=== PATIENT | male | born 1955 | race African-American/Black ===

== ENCOUNTER 2018-01-18 06:39 | Observation (INO) | payer BC ==
[2018-01-18] MEDS ORDERED: NACL 0.9% 3 ML SYG IV (10:00)
[2018-01-18] MEDS ORDERED: ZOLPIDEM 5 MG TAB PO (10:00)
[2018-01-18] MEDS ORDERED: ACETAMINOPHEN 325 MG TAB PO (10:00)
[2018-01-18] MEDS: FAMOTIDINE 20 MG TAB PO ×2 (11:51→22:00)
[2018-01-18] MEDS: DOCUSATE SODIUM 100 MG CAP PO ×2 (11:51→22:00)
[2018-01-18] MEDS: ASPIRIN 81 MG TAB PO (11:52)
[2018-01-18] MEDS: SOD CHLORIDE 0.9% 1,000 ML IV ×2 (11:52→22:01)
[2018-01-18] MEDS ORDERED: GLUCAGON 1 MG INJ IM (12:00)
[2018-01-18] MEDS ORDERED: DEXTROSE 50% 50 ML SYRINGE IV ×2 (12:00)
[2018-01-18] MEDS ORDERED: GLUCOSE GEL 15 GRAM TUBE PO ×2 (12:00)
[2018-01-18] MEDS ORDERED: SOD CHLORIDE 0.9% 1,000 ML IV (12:00)
[2018-01-18] MEDS ORDERED: GLUCOSE GEL 15 GRAM TUBE BUCCAL (12:00)
[2018-01-18 12:09] LABS: CREATINE KINASE 307 IU/L (23-200)
[2018-01-18 12:23] LABS: CK INDEX 0.8; CK-MB 2.51 ng/ml (0.0-2.4); TROPONIN-I < 0.010 ng/ml (0.000-0.120)
[2018-01-18] MEDS ORDERED: hydrALAzine 20 MG INJ IV (12:30)
[2018-01-18] MEDS: LOSARTAN 25 MG TAB PO (12:42)
[2018-01-18] MEDS: INSULIN ASPART [NOVOLOG] 3 ML PEN SC ×3 (12:51→22:08)
[2018-01-18 12:56] LABS: ANION GAP 14 (8-16); BLOOD UREA NITROGEN 19 mg/dl (7-20); CALCIUM 9.2 mg/dl (8.4-10.2); CARBON DIOXIDE 26 mmol/L (21-31); CHLORIDE 97 mmol/L (97-110); CREATININE 0.88 mg/dl (0.61-1.24); GLUCOSE 225 mg/dl (70-220); MAGNESIUM 1.7 mg/dl (1.7-2.5); POTASSIUM 3.8 mmol/L (3.5-5.1); SODIUM 133 mmol/L (135-144)
[2018-01-18 14:34] LABS: HEMOGLOBIN A1C 11.5 % (0-5.9)
[2018-01-18] MEDS: ACCU-CHEK XX ×2 (14:41→20:00)
[2018-01-18 14:58] LABS: CREATINE KINASE 277 IU/L (23-200)
[2018-01-18 15:08] LABS: CK INDEX 0.8; CK-MB 2.34 ng/ml (0.0-2.4)
[2018-01-18 15:14] LABS: ADD UMIC NO; UR ASCORBIC ACID NEGATIVE (NEGATIVE); UR BILIRUBIN (Dip) NEGATIVE (NEGATIVE); UR BLOOD (Dip) NEGATIVE (NEGATIVE); UR CLARITY CLEAR (CLEAR); UR COLOR YELLOW (YELLOW); UR GLUCOSE (Dip) 3+ mg/dL (NEGATIVE); UR KETONES (Dip) 1+ mg/dL (NEGATIVE); UR LEUKOCYTE ESTERASE (Dip) NEGATIVE Leu/ul (NEGATIVE); UR NITRITE (Dip) NEGATIVE (NEGATIVE); UR SPECIFIC GRAVITY (Dip) 1.028 (1.003-1.030); UR TOTAL PROTEIN (Dip) NEGATIVE (NEGATIVE); UR UROBILINOGEN (Dip) 1+ mg/dL (NEGATIVE)
[2018-01-18 15:29] LABS: TROPONIN-I < 0.010 ng/ml (0.000-0.120)
[2018-01-18 15:47] LABS: AMPHETAMINE/METHAMPHETAMINE Negative (NEGATIVE); BARBITURATES Negative (NEGATIVE); BENZODIAZEPINES Negative (NEGATIVE); CANNABINOIDS Positive (NEGATIVE); COCAINE Negative (NEGATIVE); OPIATES Negative (NEGATIVE)
[2018-01-18] MEDS: ONDANSETRON 4 MG INJ IV (21:52)
[2018-01-19] MEDS: ACCU-CHEK XX ×3 (02:00→13:54)
[2018-01-19] MEDS: SOD CHLORIDE 0.9% 1,000 ML IV ×2 (04:00→10:14)
[2018-01-19 05:27] LABS: ADD MAN DIFF? NO
[2018-01-19 05:30] LABS: WHITE BLOOD COUNT 7.1 10^3/ul (4.8-10.8)
[2018-01-19 05:30] LABS: BASOPHILS % 0.3 % (0.0-2.0); EOSINOPHILS # 0.2 10^3/ul (0.0-0.5); EOSINOPHILS % 3.2 % (0.0-7.0); HEMATOCRIT 40.5 % (42.0-52.0); HEMOGLOBIN 14.7 g/dl (14.0-18.0); LYMPHOCYTES # 1.6 10^3/ul (0.8-2.9); LYMPHOCYTES % 22.3 % (15.0-51.0); MEAN CORPUSCULAR HEMOGLOBIN 33.5 pg (29.0-33.0); MEAN CORPUSCULAR HGB CONC 36.3 g/dl (32.0-37.0); MEAN CORPUSCULAR VOLUME 92.3 fl (82.0-101.0); MEAN PLATELET VOLUME 9.9 fl (7.4-10.4); MONOCYTE # 0.7 10^3/ul (0.3-0.9); MONOCYTES % 9.7 % (0.0-11.0); NEUTROPHIL # 4.6 10^3/ul (1.6-7.5); NEUTROPHILS % 64.2 % (39.0-77.0); PLATELET COUNT 267 10^3/UL (140-415); RED BLOOD COUNT 4.39 10^6/ul (4.70-6.10); RED CELL DISTRIBUTION WIDTH 11.3 % (11.5-14.5)
[2018-01-19 06:55] LABS: ALANINE AMINOTRANSFERASE 23 IU/L (13-69); ALBUMIN/GLOBULIN RATIO 1.21; ALKALINE PHOSPHATASE 54 IU/L (42-121); ANION GAP 12 (8-16); ASPARTATE AMINO TRANSFERASE 29 IU/L (15-46); BILIRUBIN,INDIRECT 0.6 mg/dl (0-1.1); BILIRUBIN,TOTAL 0.6 mg/dl (0.2-1.3); BLOOD UREA NITROGEN 19 mg/dl (7-20); CALCIUM 8.8 mg/dl (8.4-10.2); CARBON DIOXIDE 29 mmol/L (21-31); CHLORIDE 98 mmol/L (97-110); CHOL/HDL RATIO 5.5 RATIO; CHOLESTEROL 249 mg/dl (100-200); CREATININE 0.96 mg/dl (0.61-1.24); GLUCOSE 206 mg/dl (70-220); HDL CHOLESTEROL 45 mg/dl (30-78); LDL CHOLESTEROL,CALCULATED 174 mg/dl; MAGNESIUM 1.6 mg/dl (1.7-2.5); POTASSIUM 3.7 mmol/L (3.5-5.1); SODIUM 135 mmol/L (135-144); TOTAL PROTEIN 7.3 g/dl (6.1-8.1); TRIGLYCERIDES 152 mg/dl (0-149)
[2018-01-19] MEDS: INSULIN ASPART [NOVOLOG] 3 ML PEN SC ×3 (07:57→17:32)
[2018-01-19] MEDS: DOCUSATE SODIUM 100 MG CAP PO (08:05)
[2018-01-19] MEDS: ASPIRIN 81 MG TAB PO (08:11)
[2018-01-19] MEDS: FAMOTIDINE 20 MG TAB PO (08:11)
[2018-01-19] MEDS: LOSARTAN 25 MG TAB PO (08:11)
[2018-01-19] MEDS: GABAPENTIN 100 MG CAP PO (13:54)
[2018-01-19] MEDS: LINAGLIPTIN 5 MG TABLET PO (13:54)
[2018-01-19] MEDS: MAGNESIUM SULFATE 1 GM/D5W 100 ML IVPB (14:21)
[2018-01-19] MEDS: INSULIN GLARGINE [LANTus] (100 UNITS/ML) SYG SC (14:29)
== END 2018-01-19 18:33 | disposition home or self-care (01) ==
LOC: 6WM 06:39
PROVIDERS: Family Medicine
DX: N17.9 Acute kidney failure, unspecified (principal); R55 Syncope and collapse; E86.0 Dehydration; E11.65 Type 2 diabetes mellitus with hyperglycemia; I10 Essential (primary) hypertension; F43.21 Adjustment disorder with depressed mood; E78.5 Hyperlipidemia, unspecified; Z91.14 Patient's other noncompliance with medication regimen; Z79.84 Long term (current) use of oral hypoglycemic drugs
CPT/HCPCS: 80048; 80053; 80061; 80307; 81003; 82550; 82553; 82962; 83036; 83735; 84443; 84484; 85025; 93306; 93880; 99217; G0378

== ENCOUNTER 2018-03-07 20:48 | Emergency (ER) | payer SELFPAY, BC | END 2018-03-07 21:00 | disposition left against medical advice (07) | LOC: E/R 21:00 | DX: Z53.21 Procedure and treatment not carried out due to patient leaving prior to being seen by health care provider (principal) ==

== ENCOUNTER 2018-03-08 11:14 | Emergency (ER) | payer BC ==
[2018-03-08 12:01] LABS: ADD MAN DIFF? NO
[2018-03-08] MEDS: ONDANSETRON 4 MG INJ IV ×2 (12:08→12:54)
[2018-03-08] MEDS: SOD CHLORIDE 0.9% 1,000 ML IV (12:08)
[2018-03-08 12:13] LABS: ADD UMIC YES; UR ASCORBIC ACID NEGATIVE (NEGATIVE); UR BILIRUBIN (Dip) NEGATIVE (NEGATIVE); UR BLOOD (Dip) NEGATIVE (NEGATIVE); UR CLARITY CLEAR (CLEAR); UR COLOR YELLOW (YELLOW); UR GLUCOSE (Dip) 2+ mg/dL (NEGATIVE); UR KETONES (Dip) 1+ mg/dL (NEGATIVE); UR LEUKOCYTE ESTERASE (Dip) NEGATIVE Leu/ul (NEGATIVE); UR MUCUS FEW /HPF (NONE SEEN); UR NITRITE (Dip) NEGATIVE (NEGATIVE); UR RBC 0 /HPF (0-5); UR SPECIFIC GRAVITY (Dip) 1.023 (1.003-1.030); UR TOTAL PROTEIN (Dip) 1+ mg/dl (NEGATIVE); UR UROBILINOGEN (Dip) 2+ mg/dL (NEGATIVE); UR WBC 1 /HPF (0-5)
[2018-03-08 12:16] LABS: WHITE BLOOD COUNT 11.1 10^3/ul (4.8-10.8)
[2018-03-08 12:16] LABS: BASOPHILS % 0.2 % (0.0-2.0); EOSINOPHILS % 0.4 % (0.0-7.0); HEMATOCRIT 36.7 % (42.0-52.0); HEMOGLOBIN 12.8 g/dl (14.0-18.0); LYMPHOCYTES # 1.6 10^3/ul (0.8-2.9); MEAN CORPUSCULAR HEMOGLOBIN 33.3 pg (29.0-33.0); MEAN CORPUSCULAR HGB CONC 34.9 g/dl (32.0-37.0); MEAN CORPUSCULAR VOLUME 95.6 fl (82.0-101.0); MEAN PLATELET VOLUME 10.2 fl (7.4-10.4); NEUTROPHIL # 8.4 10^3/ul (1.6-7.5); NEUTROPHILS % 75.9 % (39.0-77.0); PLATELET COUNT 324 10^3/UL (140-415); RED BLOOD COUNT 3.84 10^6/ul (4.70-6.10); RED CELL DISTRIBUTION WIDTH 11.9 % (11.5-14.5)
[2018-03-08 12:29] LABS: ALANINE AMINOTRANSFERASE 27 IU/L (13-69); ALKALINE PHOSPHATASE 71 IU/L (42-121); ANION GAP 16 (8-16); ASPARTATE AMINO TRANSFERASE 32 IU/L (15-46); BILIRUBIN,INDIRECT 2.8 mg/dl (0-1.1); BILIRUBIN,TOTAL 2.8 mg/dl (0.2-1.3); BLOOD UREA NITROGEN 22 mg/dl (7-20); CALCIUM 9.8 mg/dl (8.4-10.2); CARBON DIOXIDE 31 mmol/L (21-31); CHLORIDE 95 mmol/L (97-110); CREATININE 1.01 mg/dl (0.61-1.24); GLUCOSE 219 mg/dl (70-220); LIPASE 81 U/L (23-300); POTASSIUM 3.5 mmol/L (3.5-5.1); SODIUM 138 mmol/L (135-144)
== END 2018-03-08 13:46 | disposition home or self-care (01) ==
LOC: E/R 11:14
DX: R10.9 Unspecified abdominal pain (principal); R11.2 Nausea with vomiting, unspecified; E11.9 Type 2 diabetes mellitus without complications; I10 Essential (primary) hypertension; J45.909 Unspecified asthma, uncomplicated; Z79.82 Long term (current) use of aspirin
CPT/HCPCS: 36415; 80053; 81001; 83690; 85025; 96361; 96374; 96376; 99284-25

== ENCOUNTER 2018-03-09 01:12 | Emergency (ER) | payer BC ==
[2018-03-09 01:55] LABS: ADD MAN DIFF? NO
[2018-03-09 02:02] LABS: BASOPHILS % 0.2 % (0.0-2.0); HEMATOCRIT 33.6 % (42.0-52.0); HEMOGLOBIN 11.7 g/dl (14.0-18.0); LYMPHOCYTES # 0.9 10^3/ul (0.8-2.9); LYMPHOCYTES % 7.5 % (15.0-51.0); MEAN CORPUSCULAR HEMOGLOBIN 33.3 pg (29.0-33.0); MEAN CORPUSCULAR HGB CONC 34.8 g/dl (32.0-37.0); MEAN CORPUSCULAR VOLUME 95.7 fl (82.0-101.0); MEAN PLATELET VOLUME 10.3 fl (7.4-10.4); MONOCYTE # 0.5 10^3/ul (0.3-0.9); MONOCYTES % 3.9 % (0.0-11.0); NEUTROPHIL # 10.1 10^3/ul (1.6-7.5); PLATELET COUNT 322 10^3/UL (140-415); RED BLOOD COUNT 3.51 10^6/ul (4.70-6.10)
[2018-03-09 02:02] LABS: WHITE BLOOD COUNT 11.5 10^3/ul (4.8-10.8)
[2018-03-09 02:24] LABS: ALANINE AMINOTRANSFERASE 29 IU/L (13-69); ALBUMIN 3.9 g/dl (3.3-4.9); ALKALINE PHOSPHATASE 71 IU/L (42-121); ANION GAP 17 (8-16); ASPARTATE AMINO TRANSFERASE 34 IU/L (15-46); BILIRUBIN,INDIRECT 2.3 mg/dl (0-1.1); BILIRUBIN,TOTAL 2.3 mg/dl (0.2-1.3); BLOOD UREA NITROGEN 23 mg/dl (7-20); CALCIUM 9.5 mg/dl (8.4-10.2); CARBON DIOXIDE 29 mmol/L (21-31); CHLORIDE 93 mmol/L (97-110); CREATININE 0.96 mg/dl (0.61-1.24); GLUCOSE 242 mg/dl (70-220); POTASSIUM 3.7 mmol/L (3.5-5.1); SODIUM 135 mmol/L (135-144); TOTAL PROTEIN 7.8 g/dl (6.1-8.1)
[2018-03-09 02:34] LABS: B-TYPE NATRIURETIC PEPTIDE 61 PG/ML (0-125); TROPONIN-I < 0.012 ng/ml (0.000-0.120)
[2018-03-09] MEDS ORDERED: hydrALAzine 20 MG INJ (03:28)
[2018-03-09] MEDS: hydrALAzine 20 MG INJ IV (03:34)
== END 2018-03-09 04:32 | disposition left against medical advice (07) ==
LOC: E/R 04:32
DX: R07.89 Other chest pain (principal); I10 Essential (primary) hypertension; E11.9 Type 2 diabetes mellitus without complications; J45.909 Unspecified asthma, uncomplicated; F17.210 Nicotine dependence, cigarettes, uncomplicated; Z79.4 Long term (current) use of insulin; Z79.82 Long term (current) use of aspirin
CPT/HCPCS: 36415; 71045; 80053; 83880; 84484; 85025; 93005; 96374; 99285-25

== ENCOUNTER 2018-03-16 03:58 | Inpatient (IN) | payer BC ==
[2018-03-16] MEDS: ONDANSETRON 4 MG INJ IV ×2 (04:59→07:09)
[2018-03-16 05:01] LABS: ADD MAN DIFF? NO
[2018-03-16 05:09] LABS: WHITE BLOOD COUNT 9.4 10^3/ul (4.8-10.8)
[2018-03-16 05:09] LABS: BASOPHILS % 0.2 % (0.0-2.0); EOSINOPHILS % 0.2 % (0.0-7.0); HEMATOCRIT 36.6 % (42.0-52.0); LYMPHOCYTES % 10.5 % (15.0-51.0); MEAN CORPUSCULAR HEMOGLOBIN 33.3 pg (29.0-33.0); MEAN CORPUSCULAR HGB CONC 35.5 g/dl (32.0-37.0); MEAN CORPUSCULAR VOLUME 93.8 fl (82.0-101.0); MEAN PLATELET VOLUME 9.5 fl (7.4-10.4); MONOCYTE # 0.8 10^3/ul (0.3-0.9); MONOCYTES % 8.3 % (0.0-11.0); NEUTROPHIL # 7.6 10^3/ul (1.6-7.5); NEUTROPHILS % 80.4 % (39.0-77.0); PLATELET COUNT 376 10^3/UL (140-415); RED CELL DISTRIBUTION WIDTH 12.2 % (11.5-14.5)
[2018-03-16 05:30] LABS: PROTIME 13.3 Sec (11.9-14.9)
[2018-03-16 05:31] LABS: ALANINE AMINOTRANSFERASE 28 IU/L (13-69); ALBUMIN 4.1 g/dl (3.3-4.9); ALBUMIN/GLOBULIN RATIO 1.02; ALKALINE PHOSPHATASE 64 IU/L (42-121); ANION GAP 21 (8-16); ASPARTATE AMINO TRANSFERASE 30 IU/L (15-46); BILIRUBIN,INDIRECT 0.5 mg/dl (0-1.1); BILIRUBIN,TOTAL 0.5 mg/dl (0.2-1.3); BLOOD UREA NITROGEN 30 mg/dl (7-20); CALCIUM 9.7 mg/dl (8.4-10.2); CARBON DIOXIDE 29 mmol/L (21-31); CHLORIDE 89 mmol/L (97-110); CREATININE 1.28 mg/dl (0.61-1.24); GLUCOSE 176 mg/dl (70-220); PARTIAL THROMBOPLASTIN TIME 22.1 Sec (23.0-35.0); POTASSIUM 3.4 mmol/L (3.5-5.1); SODIUM 136 mmol/L (135-144); TOTAL PROTEIN 8.1 g/dl (6.1-8.1)
[2018-03-16 05:43] LABS: B-TYPE NATRIURETIC PEPTIDE 36 PG/ML (0-125); TROPONIN-I < 0.012 ng/ml (0.000-0.120)
[2018-03-16] MEDS: SOD CHLORIDE 0.9% 1,000 ML IV ×2 (07:09→17:46)
[2018-03-16] MEDS: LIDOCAINE/MYLANTA 40 ML BTL PO (07:09)
[2018-03-16] MEDS: BELLADONNA/PHENOBARBITAL TAB PO (07:16)
[2018-03-16] MEDS: POTASSIUM CHLORIDE (SR) 20 MEQ TAB PO (07:16)
[2018-03-16] MEDS ORDERED: LORAZEPAM 2 MG INJ IV (17:00)
[2018-03-16] MEDS ORDERED: DEXTROSE 50% 50 ML SYRINGE IV ×2 (17:00)
[2018-03-16] MEDS ORDERED: ACETAMINOPHEN 325 MG TAB PO (17:00)
[2018-03-16] MEDS ORDERED: GLUCAGON 1 MG INJ IM (17:00)
[2018-03-16] MEDS ORDERED: GLUCOSE GEL 15 GRAM TUBE BUCCAL (17:00)
[2018-03-16] MEDS ORDERED: ONDANSETRON 4 MG INJ IV ×2 (17:00)
[2018-03-16] MEDS ORDERED: DOCUSATE SODIUM 100 MG CAP PO (17:00)
[2018-03-16] MEDS ORDERED: morphine 2 MG INJ IV (17:00)
[2018-03-16] MEDS ORDERED: HYDROCODONE/APAP (5/325) TAB PO (17:00)
[2018-03-16] MEDS ORDERED: NA PHOSPHATE/BIPHOS 133 ML ENEMA PR (17:00)
[2018-03-16] MEDS ORDERED: ZOLPIDEM 5 MG TAB PO (17:00)
[2018-03-16] MEDS ORDERED: NACL 0.9% 3 ML SYG IV (17:00)
[2018-03-16] MEDS: NICOTINE (14 MG/24 HR) PATCH TRANSDERM (17:00)
[2018-03-16] MEDS ORDERED: GLUCOSE GEL 15 GRAM TUBE PO ×2 (17:00)
[2018-03-16] MEDS: INSULIN LISPRO 100 UNIT/ML VIAL SC (17:35)
[2018-03-16] MEDS: INSULIN ASPART [NOVOLOG] 3 ML PEN SC ×2 (17:45→20:21)
[2018-03-16] MEDS: GABAPENTIN 100 MG CAP PO (20:20)
[2018-03-16] MEDS: FAMOTIDINE 20 MG INJ IV (20:20)
[2018-03-16] MEDS: METOCLOPRAMIDE 10 MG INJ IV (21:54)
[2018-03-17] MEDS: ACCU-CHEK XX (02:00)
[2018-03-17] MEDS: SOD CHLORIDE 0.9% 1,000 ML IV ×3 (03:09→17:21)
[2018-03-17] MEDS: METOCLOPRAMIDE 10 MG INJ IV ×2 (05:15→12:20)
[2018-03-17 05:50] LABS: ADD MAN DIFF? NO
[2018-03-17 05:54] LABS: BASOPHILS % 0.3 % (0.0-2.0); EOSINOPHILS # 0.2 10^3/ul (0.0-0.5); EOSINOPHILS % 2.3 % (0.0-7.0); HEMATOCRIT 33.4 % (42.0-52.0); LYMPHOCYTES # 1.5 10^3/ul (0.8-2.9); LYMPHOCYTES % 21.8 % (15.0-51.0); MEAN CORPUSCULAR HEMOGLOBIN 34.2 pg (29.0-33.0); MEAN CORPUSCULAR HGB CONC 35.9 g/dl (32.0-37.0); MEAN CORPUSCULAR VOLUME 95.2 fl (82.0-101.0); MEAN PLATELET VOLUME 9.6 fl (7.4-10.4); MONOCYTE # 0.7 10^3/ul (0.3-0.9); MONOCYTES % 10.1 % (0.0-11.0); NEUTROPHIL # 4.5 10^3/ul (1.6-7.5); NEUTROPHILS % 65.2 % (39.0-77.0); PLATELET COUNT 310 10^3/UL (140-415); RED BLOOD COUNT 3.51 10^6/ul (4.70-6.10); RED CELL DISTRIBUTION WIDTH 11.9 % (11.5-14.5)
[2018-03-17 06:11] LABS: HEMOGLOBIN A1C 6.2 % (0-5.9)
[2018-03-17 06:16] LABS: ALANINE AMINOTRANSFERASE 27 IU/L (13-69); ALBUMIN 3.2 g/dl (3.3-4.9); ALBUMIN/GLOBULIN RATIO 0.96; ALKALINE PHOSPHATASE 49 IU/L (42-121); ANION GAP 11 (8-16); ASPARTATE AMINO TRANSFERASE 20 IU/L (15-46); BILIRUBIN,INDIRECT 0.4 mg/dl (0-1.1); BILIRUBIN,TOTAL 0.4 mg/dl (0.2-1.3); BLOOD UREA NITROGEN 19 mg/dl (7-20); CALCIUM 8.7 mg/dl (8.4-10.2); CARBON DIOXIDE 32 mmol/L (21-31); CHLORIDE 98 mmol/L (97-110); CREATININE 0.98 mg/dl (0.61-1.24); GLUCOSE 121 mg/dl (70-220); POTASSIUM 3.2 mmol/L (3.5-5.1); SODIUM 138 mmol/L (135-144); TOTAL PROTEIN 6.5 g/dl (6.1-8.1)
[2018-03-17 06:19] LABS: LIPASE 513 U/L (23-300)
[2018-03-17 06:28] LABS: TROPONIN-I < 0.012 ng/ml (0.000-0.120)
[2018-03-17] MEDS: POTASSIUM CHLORIDE (SR) 20 MEQ TAB PO (06:54)
[2018-03-17] MEDS: INSULIN ASPART [NOVOLOG] 3 ML PEN SC ×7 (08:00→21:00)
[2018-03-17] MEDS: GABAPENTIN 100 MG CAP PO ×3 (08:07→21:14)
[2018-03-17] MEDS: FAMOTIDINE 20 MG INJ IV ×2 (08:08→21:14)
[2018-03-17] MEDS: NICOTINE (14 MG/24 HR) PATCH TRANSDERM (09:00)
[2018-03-17] MEDS: LINAGLIPTIN 5 MG TABLET PO (10:48)
[2018-03-17] MEDS: ENOXAPARIN 40 MG/0.4 ML SYG SC (10:49)
[2018-03-17] MEDS: INSULIN GLARGINE [LANTus] (100 UNITS/ML) SYG SC (10:49)
[2018-03-17] MEDS: BISACODYL (EC) 5 MG TAB PO (15:00)
[2018-03-17] MEDS ORDERED: NA PHOSPHATE/BIPHOS 133 ML ENEMA PR (19:00)
[2018-03-17] MEDS: METOCLOPRAMIDE 5 MG TAB PO (21:00)
[2018-03-17] MEDS: POLYETHYLENE GLYCOL 17 GM PACKET PO (21:14)
[2018-03-17] MEDS ORDERED: NON-FORMULARY/PATIENT OWN MED (Valsartan* (Diovan*) 80 MG) PO (22:30)
[2018-03-17] MEDS: LOSARTAN 50 MG TAB PO (22:57)
[2018-03-17] MEDS: hydrALAzine 20 MG INJ IV (22:58)
[2018-03-18] MEDS: ACCU-CHEK XX (01:44)
[2018-03-18] MEDS: SOD CHLORIDE 0.9% 1,000 ML IV (05:23)
[2018-03-18 05:33] LABS: ADD MAN DIFF? NO
[2018-03-18 05:35] LABS: BASOPHILS % 0.6 % (0.0-2.0); EOSINOPHILS # 0.2 10^3/ul (0.0-0.5); EOSINOPHILS % 2.2 % (0.0-7.0); HEMATOCRIT 32.5 % (42.0-52.0); HEMOGLOBIN 11.6 g/dl (14.0-18.0); LYMPHOCYTES # 1.3 10^3/ul (0.8-2.9); LYMPHOCYTES % 19.1 % (15.0-51.0); MEAN CORPUSCULAR HEMOGLOBIN 33.7 pg (29.0-33.0); MEAN CORPUSCULAR HGB CONC 35.7 g/dl (32.0-37.0); MEAN CORPUSCULAR VOLUME 94.5 fl (82.0-101.0); MEAN PLATELET VOLUME 9.6 fl (7.4-10.4); MONOCYTE # 0.8 10^3/ul (0.3-0.9); MONOCYTES % 11.8 % (0.0-11.0); NEUTROPHIL # 4.4 10^3/ul (1.6-7.5); NEUTROPHILS % 66.2 % (39.0-77.0); PLATELET COUNT 306 10^3/UL (140-415); RED BLOOD COUNT 3.44 10^6/ul (4.70-6.10)
[2018-03-18 05:35] LABS: WHITE BLOOD COUNT 6.7 10^3/ul (4.8-10.8)
[2018-03-18 06:01] LABS: ALANINE AMINOTRANSFERASE 18 IU/L (13-69); ALBUMIN 3.5 g/dl (3.3-4.9); ALBUMIN/GLOBULIN RATIO 1.16; ALKALINE PHOSPHATASE 51 IU/L (42-121); ANION GAP 12 (8-16); ASPARTATE AMINO TRANSFERASE 22 IU/L (15-46); BILIRUBIN,INDIRECT 0.3 mg/dl (0-1.1); BILIRUBIN,TOTAL 0.3 mg/dl (0.2-1.3); BLOOD UREA NITROGEN 12 mg/dl (7-20); CALCIUM 8.7 mg/dl (8.4-10.2); CARBON DIOXIDE 30 mmol/L (21-31); CHLORIDE 100 mmol/L (97-110); CREATININE 0.85 mg/dl (0.61-1.24); GLUCOSE 110 mg/dl (70-220); POTASSIUM 3.2 mmol/L (3.5-5.1); SODIUM 139 mmol/L (135-144); TOTAL PROTEIN 6.5 g/dl (6.1-8.1)
[2018-03-18 06:15] LABS: LIPASE 442 U/L (23-300)
[2018-03-18 06:23] LABS: PREALBUMIN 16.1 mg/dl (17.6-36.0)
[2018-03-18] MEDS: INSULIN ASPART [NOVOLOG] 3 ML PEN SC ×6 (07:58→17:26)
[2018-03-18] MEDS: ENOXAPARIN 40 MG/0.4 ML SYG SC (08:00)
[2018-03-18] MEDS: INSULIN GLARGINE [LANTus] (100 UNITS/ML) SYG SC (08:01)
[2018-03-18] MEDS: FAMOTIDINE 20 MG INJ IV (08:02)
[2018-03-18] MEDS: POLYETHYLENE GLYCOL 17 GM PACKET PO (08:03)
[2018-03-18] MEDS: METOCLOPRAMIDE 5 MG TAB PO ×3 (08:03→12:14)
[2018-03-18] MEDS: NICOTINE (14 MG/24 HR) PATCH TRANSDERM ×2 (08:03→09:00)
[2018-03-18] MEDS: LOSARTAN 50 MG TAB PO (08:03)
[2018-03-18] MEDS: GABAPENTIN 100 MG CAP PO ×2 (08:03→12:14)
[2018-03-18] MEDS: LINAGLIPTIN 5 MG TABLET PO (08:03)
[2018-03-18] MEDS ORDERED: NON-FORMULARY/PATIENT OWN MED (Valsartan* (Diovan*) 80 MG) PO (09:00)
[2018-03-18] MEDS: POTASSIUM CHLORIDE 20 MEQ POWDER FOR ORAL SOLN PO (13:11)
[2018-03-18] MEDS: BISACODYL 10 MG SUPP PR (14:54)
[2018-03-18] MEDS ORDERED: FAMOTIDINE 20 MG TAB PO (21:00)
[2018-03-19] MEDS ORDERED: POTASSIUM CHLORIDE 20 MEQ POWDER FOR ORAL SOLN PO (09:00)
== END 2018-03-18 18:05 | disposition home or self-care (01) | DRG 392 ==
LOC: E/R 03:58 → PP2 11:40
DX: K21.9 Gastro-esophageal reflux disease without esophagitis (principal); N17.9 Acute kidney failure, unspecified; R11.2 Nausea with vomiting, unspecified; I10 Essential (primary) hypertension; E78.5 Hyperlipidemia, unspecified; F17.200 Nicotine dependence, unspecified, uncomplicated; R63.4 Abnormal weight loss; Z68.23 Body mass index [BMI] 23.0-23.9, adult; F32.9 Major depressive disorder, single episode, unspecified; E88.81 Metabolic syndrome and other insulin resistance; J45.909 Unspecified asthma, uncomplicated; E11.9 Type 2 diabetes mellitus without complications; D64.9 Anemia, unspecified
CPT/HCPCS: 36415; 71045; 74176; 80053; 82962; 83036; 83605; 83690; 83735; 83880; 84100; 84134; 84443; 84484; 85025; 85610; 85730; 87081; 93005; 96361; 96374; 96376; 99285-25

== ENCOUNTER 2018-05-11 11:33 | Emergency (ER) | payer BC ==
[2018-05-11 12:48] LABS: ADD MAN DIFF? NO
[2018-05-11] MEDS: BELLADONNA/PHENOBARBITAL TAB PO (12:49)
[2018-05-11] MEDS: FAMOTIDINE 20 MG TAB PO (12:49)
[2018-05-11] MEDS: ONDANSETRON 4 MG INJ IV (12:49)
[2018-05-11 12:50] LABS: WHITE BLOOD COUNT 11.6 10^3/ul (4.8-10.8)
[2018-05-11 12:50] LABS: BASOPHILS % 0.1 % (0.0-2.0); HEMATOCRIT 44.8 % (42.0-52.0); HEMOGLOBIN 15.7 g/dl (14.0-18.0); LYMPHOCYTES # 0.7 10^3/ul (0.8-2.9); LYMPHOCYTES % 6.3 % (15.0-51.0); MEAN CORPUSCULAR HEMOGLOBIN 33.1 pg (29.0-33.0); MEAN CORPUSCULAR VOLUME 94.5 fl (82.0-101.0); MEAN PLATELET VOLUME 9.9 fl (7.4-10.4); MONOCYTE # 0.4 10^3/ul (0.3-0.9); MONOCYTES % 3.6 % (0.0-11.0); NEUTROPHIL # 10.4 10^3/ul (1.6-7.5); NEUTROPHILS % 89.7 % (39.0-77.0); PLATELET COUNT 319 10^3/UL (140-415); RED BLOOD COUNT 4.74 10^6/ul (4.70-6.10); RED CELL DISTRIBUTION WIDTH 11.2 % (11.5-14.5)
[2018-05-11] MEDS: LIDOCAINE/MYLANTA 40 ML BTL PO (12:50)
[2018-05-11] MEDS: SOD CHLORIDE 0.9% 1,000 ML IV (12:50)
[2018-05-11 13:13] LABS: ALANINE AMINOTRANSFERASE 16 IU/L (13-69); ALBUMIN 4.9 g/dl (3.3-4.9); ALBUMIN/GLOBULIN RATIO 1.04; ALKALINE PHOSPHATASE 86 IU/L (42-121); ANION GAP 18 (5-13); ASPARTATE AMINO TRANSFERASE 33 IU/L (15-46); BILIRUBIN,INDIRECT 0.7 mg/dl (0-1.1); BILIRUBIN,TOTAL 0.7 mg/dl (0.2-1.3); BLOOD UREA NITROGEN 26 mg/dl (7-20); CARBON DIOXIDE 28 mmol/L (21-31); CHLORIDE 91 mmol/L (97-110); CREATININE 1.23 mg/dl (0.61-1.24); Estimated GFR > 60 mL/min (>60); GLUCOSE 290 mg/dl (70-220); LIPASE 75 U/L (23-300); POTASSIUM 4.1 mmol/L (3.5-5.1); SODIUM 137 mmol/L (135-144); TOTAL PROTEIN 9.6 g/dl (6.1-8.1)
== END 2018-05-11 14:07 | disposition home or self-care (01) ==
LOC: E/R 11:33
DX: K21.9 Gastro-esophageal reflux disease without esophagitis (principal); E86.0 Dehydration; J45.909 Unspecified asthma, uncomplicated; Z79.82 Long term (current) use of aspirin; Z79.4 Long term (current) use of insulin
CPT/HCPCS: 36415; 80053; 83690; 85025; 96374; 99284-25

== ENCOUNTER 2018-05-13 17:14 | Emergency (ER) | payer BC ==
[2018-05-13 17:41] LABS: ADD MAN DIFF? NO
[2018-05-13] MEDS: ONDANSETRON 4 MG INJ IV (17:43)
[2018-05-13] MEDS: HALOPERIDOL 5 MG INJ IV (17:43)
[2018-05-13] MEDS: SOD CHLORIDE 0.9% 1,000 ML IV (17:44)
[2018-05-13 17:46] LABS: WHITE BLOOD COUNT 10.7 10^3/ul (4.8-10.8)
[2018-05-13 17:46] LABS: BASOPHILS % 0.2 % (0.0-2.0); EOSINOPHILS % 0.2 % (0.0-7.0); HEMATOCRIT 45.1 % (42.0-52.0); HEMOGLOBIN 15.8 g/dl (14.0-18.0); LYMPHOCYTES # 1.9 10^3/ul (0.8-2.9); LYMPHOCYTES % 17.5 % (15.0-51.0); MEAN CORPUSCULAR HEMOGLOBIN 33.3 pg (29.0-33.0); MEAN CORPUSCULAR VOLUME 94.9 fl (82.0-101.0); MEAN PLATELET VOLUME 9.9 fl (7.4-10.4); MONOCYTE # 0.9 10^3/ul (0.3-0.9); MONOCYTES % 8.7 % (0.0-11.0); NEUTROPHIL # 7.8 10^3/ul (1.6-7.5); PLATELET COUNT 344 10^3/UL (140-415); RED BLOOD COUNT 4.75 10^6/ul (4.70-6.10); RED CELL DISTRIBUTION WIDTH 11.2 % (11.5-14.5)
[2018-05-13 17:51] LABS: ADD UMIC YES; UR ASCORBIC ACID NEGATIVE (NEGATIVE); UR BILIRUBIN (Dip) NEGATIVE (NEGATIVE); UR BLOOD (Dip) NEGATIVE (NEGATIVE); UR CLARITY SLIGHTLY CLOUDY (CLEAR); UR COLOR YELLOW (YELLOW); UR GLUCOSE (Dip) 1+ mg/dL (NEGATIVE); UR KETONES (Dip) 1+ mg/dL (NEGATIVE); UR LEUKOCYTE ESTERASE (Dip) NEGATIVE Leu/ul (NEGATIVE); UR MUCUS FEW /HPF (NONE SEEN); UR NITRITE (Dip) NEGATIVE (NEGATIVE); UR RBC 0 /HPF (0-5); UR SPECIFIC GRAVITY (Dip) 1.027 (1.003-1.030); UR TOTAL PROTEIN (Dip) 1+ mg/dl (NEGATIVE); UR UROBILINOGEN (Dip) NEGATIVE (NEGATIVE); UR WBC 1 /HPF (0-5)
[2018-05-13 18:08] LABS: ALANINE AMINOTRANSFERASE 18 IU/L (13-69); ALBUMIN 4.9 g/dl (3.3-4.9); ALBUMIN/GLOBULIN RATIO 1.19; ALKALINE PHOSPHATASE 73 IU/L (42-121); ANION GAP 16 (5-13); ASPARTATE AMINO TRANSFERASE 28 IU/L (15-46); BILIRUBIN,INDIRECT 0.5 mg/dl (0-1.1); BILIRUBIN,TOTAL 0.5 mg/dl (0.2-1.3); BLOOD UREA NITROGEN 34 mg/dl (7-20); CALCIUM 9.7 mg/dl (8.4-10.2); CARBON DIOXIDE 33 mmol/L (21-31); CHLORIDE 88 mmol/L (97-110); CREATININE 1.36 mg/dl (0.61-1.24); Estimated GFR > 60 mL/min (>60); GLUCOSE 228 mg/dl (70-220); LIPASE 149 U/L (23-300); POTASSIUM 3.2 mmol/L (3.5-5.1); SODIUM 137 mmol/L (135-144)
[2018-05-13 18:19] LABS: TROPONIN-I < 0.012 ng/ml (0.000-0.120)
[2018-05-13] MEDS: POTASSIUM CHLORIDE (SR) 20 MEQ TAB PO (18:39)
== END 2018-05-13 18:49 | disposition home or self-care (01) ==
LOC: E/R 17:14
DX: R11.2 Nausea with vomiting, unspecified (principal); J45.909 Unspecified asthma, uncomplicated; I10 Essential (primary) hypertension; E11.9 Type 2 diabetes mellitus without complications; Z79.4 Long term (current) use of insulin; Z79.82 Long term (current) use of aspirin
CPT/HCPCS: 36415; 80053; 81001; 83690; 84484; 85025; 93005; 96374; 96375; 99284-25